=== PATIENT | female | born 1995 | race Caucasian/White ===

== ENCOUNTER 2024-04-01 12:08 | Emergency (ER) | payer OTHER ==
[2024-04-01 12:16] VITALS: BP 133/71; PULSE 78; RESP 20; TEMP 98.3; BMI 39.9
[2024-04-01] MEDS ORDERED: FAMOTIDINE 20 MG TABLET ONE (12:41)
[2024-04-01] MEDS: FAMOTIDINE 10 MG TABLET PO ONE (12:41)
== END 2024-04-01 13:05 | disposition home or self-care (01) ==
LOC: JERFT 12:08
DX: H57.89 Other specified disorders of eye and adnexa (principal); T78.40XS Allergy, unspecified, sequela; R11.0 Nausea
CPT/HCPCS: 99283-25